=== PATIENT | male | born 1960 | race Caucasian/White ===

== ENCOUNTER 2019-02-10 09:10 | Outpatient (REF) | payer SELFPAY ==
[2019-02-11 10:56] LABS: PSA, Screening 1.1 ng/ml (0-3.5)
== END 2019-02-10 09:30 ==
LOC: NCHCN 09:10
PROVIDERS: PCP Family Medicine; Visit Provider Family Medicine
DX: Z12.5 Encounter for screening for malignant neoplasm of prostate (principal); Z00.00 Encounter for general adult medical examination without abnormal findings
CPT/HCPCS: 84153

== ENCOUNTER 2020-03-21 12:16 | Outpatient (REF) | payer BC, SELFPAY ==
[2020-03-21 15:15] LABS: Calculated LDL 95 mg/dL (<100); Cholesterol 173 mg/dL (<200); Glucose 97 mg/dL (74-106); HDL Cholesterol 51 mg/dL (40-60); Triglyceride 137 mg/dL (<150)
[2020-03-22 09:42] LABS: PSA, Screening 1.2 ng/mL (0.0-3.5)
== END 2020-03-21 12:36 ==
LOC: NCHCN 12:16
PROVIDERS: PCP Family Medicine; Visit Provider Family Medicine
DX: Z00.00 Encounter for general adult medical examination without abnormal findings (principal); Z13.1 Encounter for screening for diabetes mellitus; Z12.5 Encounter for screening for malignant neoplasm of prostate; Z13.220 Encounter for screening for lipoid disorders
CPT/HCPCS: 80061; 82947; 84153

== ENCOUNTER 2020-03-22 08:34 | Outpatient (REF) | payer BC, SELFPAY ==
[2020-03-23 14:59] LABS: Helicobacter pylori Ag, Feces Negative (Negative)
== END 2020-03-22 08:54 ==
LOC: NCHCN 08:34
PROVIDERS: PCP Family Medicine; Visit Provider Family Medicine
DX: K30 Functional dyspepsia (principal)
CPT/HCPCS: 87338

== ENCOUNTER 2021-03-26 17:36 | Outpatient (REF) | payer BC, SELFPAY ==
[2021-03-26 21:39] LABS: PSA, Screening 1.4 ng/mL (0.0-3.5)
== END 2021-03-26 17:37 | disposition home or self-care (01) ==
LOC: NCHCN 17:36
PROVIDERS: PCP Family Medicine; Visit Provider Family Medicine
DX: Z00.00 Encounter for general adult medical examination without abnormal findings (principal); Z12.5 Encounter for screening for malignant neoplasm of prostate
CPT/HCPCS: 84153

== ENCOUNTER 2021-07-18 18:16 | Outpatient (REF) | payer BC, SELFPAY ==
--- NOTE | 2021-07-18 14:30 | SKI_PTH ---
PATIENT: Zaid Leong LOC: NCN #:[id number] AGE/SX: 60/M ROOM: RE07/18/[address]: Gagandeep Roger : 1960 BED: DIS: 07/18/2021 SPEC #: [id number] RECD: 07/19/21 13:07 STATUS: KEATON DOMINGUEZ #: [id number] EFRAIN: 07/18/21 14:[address]: Gagandeep Roger DEPT: Surgical Specimen RECD BY: Sabrina Pickard Tissues: 1 - SKIN BIOPSY(SHAVE/PUNCH) Procedures: SKIN LEVEL 4 Comments: [id number]
== END 2021-07-18 18:17 | disposition home or self-care (01) ==
LOC: NCHCN 18:16
PROVIDERS: PCP Family Medicine; Visit Provider Family Medicine
DX: L82.1 Other seborrheic keratosis (principal)
CPT/HCPCS: 88305

== ENCOUNTER 2022-03-29 15:13 | Outpatient (REF) | payer BC, SELFPAY ==
[2022-04-01 09:28] LABS: PSA, Screening 2.4 ng/mL (<=3.5)
== END 2022-03-29 15:14 | disposition home or self-care (01) ==
LOC: NCHCN 15:13
PROVIDERS: PCP Family Medicine; Visit Provider Family Medicine
DX: Z00.00 Encounter for general adult medical examination without abnormal findings (principal); Z12.5 Encounter for screening for malignant neoplasm of prostate
CPT/HCPCS: 84153

== ENCOUNTER 2023-03-02 05:08 | Emergency (ER) | payer BC, SELFPAY ==
[2023-03-02 05:12] VITALS: BP 138/83; PULSE 88; RESP 18; TEMP 36.7; O2SAT 100
--- NOTE | 2023-03-02 05:15 | RT.EKG_ITS ---
APPROVED REPORT Exam: Resting ECG Reason for Exam: anxiety Patient Location: E HR:64 bpm ECG Measurements Heart Rate 64 AXIS [place] 134 P 74 QRSd 94 QRS 57 QT 408 T 43 QTc 423 Conclusion Sinus rhythm...normal P axis, V-rate 60- 99 Physician: no stemi
--- NOTE | 2023-03-02 05:25 | W.ED.GENAD ---
Discharge Plan Disposition Patient Disposition: Home Discharge Details Chief Complaint: Anxiety Clinical Impression: Insomnia, Panic attack Primary Care Provider: Gagandeep Roger ED Provider: Diaz Mclaughlin Home Meds and New Rx's Prescriptions: No Action atorvastatin 10 MG tablet 20 mg PO DAILY cholecalciferol (vitamin D3) 2,000 UNIT tablet 1 tab PO DAILY Discharge Instructions Instructions: Panic Attack (ED) Additional Instructions: At this time your EKG is reassuring, your symptoms thankfully appear inconsistent with a life-threatening disorder. That being said, your symptoms are certainly impacting your quality of life. Please take the Ativan as needed. You can take half of a tablet as needed during the day, or a full tablet at night to help sleep. Please follow-up closely with your primary care provider. If you notice any worsening of your symptoms, or any new symptoms such as vomiting, diarrhea, fever, chills, shortness of breath, chest pain, numbness, weakness, or fainting , please return immediately to the emergency department for reevaluation. Please follow up with your primary care provider as soon as possible for reassessment and reevaluation. As always, it was a pleasure participating in your medical care today. Referrals: Gagandeep Roger [Primary Care Provider] - Medical Decision Making 62-year-old male with no significant past medical history aside for high cholesterol presents today for anxiety. Patient states that over the last 2 weeks he has been having episodes where he will wake up out of sleep feeling notably panicked like he needs to escape and just get out or move. He denies any chest pain or shortness of breath. He denies any tearing or ripping sensation. His episodes last for few minutes and then resolve on their own. He denies any significant aggravating factors that he can think of. He did start seeing a counselor because of this and is scheduled to see his primary care provider in the upcoming week on Friday. He denies any personal or family history of pheochromocytoma. He denies any weight loss or weight gain. He denies any history of thyroid problem. He denies any new medication use, significant alcohol use, or drug use. He denies any homicidal or suicidal ideations. No other complaints at this time. Exam demonstrates a well-appearing male, no acute distress. He denies any symptoms at this time. States that he otherwise feels well but just has not been sleeping at all. Vital signs are notably stable. EKG benign. No evidence of MD. Symptoms inconsistent with dissection. History appears inconsistent with pheochromocytoma. Symptoms appear inconsistent with thyroid storm. This certainly may be an anxiety component. Patient's goals at this time are to help sleep tonight and to get him through to Friday morning when he can follow-up with his primary care provider Dr. Almanza. I do think this is reasonable. With the EKG showing no evidence of MD, dysrhythmia, or other abnormality I do not see an indication for further work-up at this time, especially in the clinical setting of his current asymptomatic status, normal vital signs, and unremarkable history. We will give 2 tablets of Ativan for home use as needed to help sleep. Discussed red flags for which to return. Discussed the importance of further discussion with PCP about potential long-term anxiolytics. Patient does not want to have any additional further discussion with mental health advocates at this time as he is already currently plugged in. I have extensively reviewed the treatment plan and discharge instructions with the patient. I have addressed all patient concerns at this time. The patient was made aware of what symptoms to monitor for that would warrant a return to the emergency department. Discussed the plan with the patient, they demonstrate verbal understanding and agreement with our assessment and plan at this time. The documentation in this chart was dictated using [employer] dictation software. Please excuse any dictation errors. HPI General Date/Time Provider Initiated Documentation: 03/02/23 05:08. HPI Narrative: 62-year-old male with no significant past medical history aside for high cholesterol presents today for anxiety. Patient states that over the last 2 weeks he has been having episodes where he will wake up out of sleep feeling notably panicked like he needs to escape and just get out or move. He denies any chest pain or shortness of breath. He denies any tearing or ripping sensation. His episodes last for few minutes and then resolve on their own. He denies any significant aggravating factors that he can think of. He did start seeing a counselor because of this and is scheduled to see his primary care provider in the upcoming week on Friday. He denies any personal or family history of pheochromocytoma. He denies any weight loss or weight gain. He denies any history of thyroid problem. He denies any new medication use, significant alcohol use, or drug use. He denies any homicidal or suicidal ideations. No other complaints at this time. Related Data Home Medications Medication Instructions Recorded Confirmed atorvastatin 10 mg tablet 20 mg PO DAILY 08/15/14 06/28/16 cholecalciferol (vitamin D3) 50 1 tab PO DAILY 10/21/14 06/28/16 mcg (2,000 unit) tablet Allergies Allergy/AdvReac Type Severity Reaction Status Date / Time No Known Allergies Allergy Unverified 04/29/16 15:22 General Stated Complaint: Anxiety SHANNAN: 3 Review of Systems All systems reviewed & are unremarkable except as noted in HPI and below PFSH All Active Problems (Updated 03/02/23 @ 05:33 by Diaz Mclaughlin DO) Colon cancer screening (Acute) History of colonic polyps (Acute) Insomnia (Acute) Panic attack (Acute) Surgical History Colonoscopy - MAC (06/28/16) Social History Smoking/Tobacco Use Status: Former Tobacco Use Smoking risk assessment performed?: Yes Alcohol Intake: current Alcohol Intake frequency: a few times a week Drug use: Never Substance use type: does not use Do you feel safe at home: Yes Do you feel safe in your relationship?: Yes Exam Narrative Exam Narrative: 1.Const: Well-nourished, Well-developed, appearing stated age 2.Eyes: PERRL, no conjunctival injection, and symmetrical lids. 3.ENT: Atraumatic external nose and ears. Moist MM. Neck: Symmetric, trachea midline, No thyromegaly. 4.CVS: +S1/S2, No murmurs or gallops. Peripheral pulses 2+ and equal in all extremities. Brisk capillary refill in all extremities. 5.RESP: Unlabored respiratory effort. Clear to auscultation bilaterally. No wheezes rales or rhonchi 6.GI: Soft, Nontender/Nondistended, No hepatosplenomegaly. No guarding or rebound. 7.MSK: Normocephalic/Atraumatic, Extremities w/o deformity or ttp No cyanosis or clubbing, Normal movement of all extremities 8.Skin: Warm, Dry. No rashes or lesions. 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 Sensation grossly intact, no focal neurologic deficits. 10.Psych: (AAO) x3. Appropriate mood and affect Course Vital Signs Vital signs: Vital Signs Temperature 36.7 C 03/02/23 05:12 Pulse 88 03/02/23 05:12 Respiratory Rate 18 03/02/23 05:12 Blood Pressure 138/83 03/02/23 05:12 Pulse Oximetry 100 03/02/23 05:12 Temperature 36.7 C 03/02/23 05:12 Temperature Source Tympanic 03/02/23 05:12 Pulse 88 03/02/23 05:12 Respiratory Rate 18 03/02/23 05:12 Respiratory Effort Normal 03/02/23 05:17 Respiratory Depth Normal 03/02/23 05:17 Respiratory Pattern Normal 03/02/23 05:17 Blood Pressure 138/83 03/02/23 05:12 Blood Pressure Position Supine 03/02/23 05:12 Pulse Oximetry 100 03/02/23 05:12 Oxygen Delivery Method Room Air 03/02/23 05:12 Oxygen Flow Rate 0 03/02/23 05:12 Pain Level 0 03/02/23 05:12 PAWSS Have you Been Recently Intoxicated or Drunk Within the Last 30 days?: No Have you Ever Experienced Previous Episodes of Alcohol Withdrawal?: No Have you ever Experienced Withdrawal Seizures?: No Have you ever Experienced Delirium Tremens(DT)s?: No Have you ever undergone Alcohol Rehabilitation Treatment (i.e, inpt ot outpatient treatment programs)?: No Have you ever Experienced Blackouts?: No Have you ever Combined Alcohol with other Downers within the last 90 days?: No Have you ever Combined Alcohol with any other Substance of Abuse during the last 90 days?: No Positive Blood Alcohol level on Presentation? [PCS.BAL]: No Evidence of Increased Autonomic Activity (i.e. HR>120, tremor, sweating, agitation, nausea)?: No Result: 0
[2023-03-02] MEDS: LORazepam 1 MG TAB 2 MG PO (05:32)
== END 2023-03-02 05:46 | disposition home or self-care (01) ==
PROVIDERS: Emergency Provider Student in an Organized Health Care Education/Training Program; PCP Family Medicine
DX: F41.0 Panic disorder [episodic paroxysmal anxiety] (principal); G47.00 Insomnia, unspecified
CPT/HCPCS: 93005; 99283; 93010

== ENCOUNTER 2023-04-02 17:03 | Outpatient (REF) | payer BC, SELFPAY ==
[2023-04-02 19:08] LABS: Hemoglobin A1C 5.5 % (<5.7)
[2023-04-02 19:16] LABS: Calculated LDL 65 mg/dL (<100); Cholesterol 157 mg/dL (<200); HDL Cholesterol 53 mg/dL (40-60); Triglyceride 199 mg/dL (<150)
[2023-04-03 17:50] LABS: PSA, Screening 1.3 ng/mL (<=4.5)
== END 2023-04-02 17:04 | disposition home or self-care (01) ==
LOC: NCHCN 17:03
PROVIDERS: PCP Family Medicine; Visit Provider Family Medicine
DX: Z00.00 Encounter for general adult medical examination without abnormal findings (principal); Z12.5 Encounter for screening for malignant neoplasm of prostate; Z13.1 Encounter for screening for diabetes mellitus; E78.5 Hyperlipidemia, unspecified
CPT/HCPCS: 80061; 84153; 83036

== ENCOUNTER → 2023-09-17 01:27 | Outpatient (CLI) | payer BC, SELFPAY ==
--- NOTE | 2023-09-17 | DI.RAD_ITS ---
Exam(s) XR CHEST 2V PA LATERAL EXAM: XR CHEST 2V PA LATERAL CLINICAL HISTORY: HEMOPTYSIS R04.2 COUGHING UP BLOOD FORMER SMOKER. TECHNIQUE: 2D digital imaging was performed. COMPARISON: No exams were available for comparison FINDINGS: 2 views: Heart size is normal. The mediastinum is not widened. Left lung is clear. There is nodular density in the lower right lung field seen on the frontal view, measuring approximately 2.5 x 1.1 cm. There are no pleural effusions. IMPRESSION: There is a lobulated nodular density in the lower half of the right lung field either in the lower lo be or right middle lobe. This is only seen on the frontal view but requires follow-up. Recommend CT scan. DATA REPOSITORY: RADIATION DOSE DELIVERED:
== END ==
PROVIDERS: PCP Family Medicine; Visit Provider Family Medicine
DX: R91.8 Other nonspecific abnormal finding of lung field (principal); Z87.891 Personal history of nicotine dependence; R04.2 Hemoptysis
CPT/HCPCS: 71046

== ENCOUNTER → 2023-11-05 01:19 | Outpatient (CLI) | payer BC, SELFPAY ==
[2023-11-05 13:57] LABS: Estimated GFR 85.63 (mL/min/1.73m2)
[2023-11-05] MEDS: Omnipaque 350 MG/ML 100 ML BTL 70 ML IJ (14:15)
[2023-11-05] MEDS: Normal Saline - Diluent 50 ML VIAL IJ (14:16)
--- NOTE | 2023-11-05 14:30 | DI.CT_ITS ---
Exam(s) CT CHEST W EXAM: CT CHEST W CLINICAL HISTORY: HEMOPTYSIS R04.2 ? MASS, FORMER SMOKER TECHNIQUE: Imaging Protocol: Axial computed tomography images with coronal and sagittal reformatted images were created and reviewed CONTRAST MATERIAL: Intravenous: Omnipaque 350 Contrast volume:structured data ml. COMPARISON: CR XR CHEST 2V PA LATERAL from 09/17/2023 FINDINGS: Pulmonary parenchyma: Minimal emphysematous changes. Mild upper lobe scarring. No consolidation. N o dominant measurable mass. Tracheobronchial tree: No bronchiectasis or mucous plugging. No bronchial wall thickening. Mediastinum and Ailyn: No dominant adenopathy or fluid collection. Pleura: No effusion. No pneumothorax. Heart: The heart is not dilated. No coronary artery calcifications are seen. Aorta: Thoracic aorta non-dilated. Minimal atherosclerotic changes. Upper abdomen: No acute findings.. Bones: Mild degenerative changes in the spine. Soft tissues: Unremarkable. IMPRESSION: No acute abnormality. No evidence of mass or suspicious pulmonary nodules. No filtrate or bronchial abnormality. RADIATION DOSE DELIVERED: 552.76mGy.cm Total DLP DATA REPOSITORY: All CT scans at this facility are submitted to the National Radiology Data Registry (NRDR) Dose Index Registry (DIR) with the [employer] ([employer]). RADIATION OPTIMIZATION: All CT scans at this facility use at least one of these dose optimization te chniques: automated exposure control; mA and/or kV adjustment per patient size (includes targeted exa ms where dose is matched to clinical indication); or iterative reconstruction.
== END ==
PROVIDERS: PCP Family Medicine; Visit Provider Family Medicine
DX: R04.2 Hemoptysis (principal); F17.210 Nicotine dependence, cigarettes, uncomplicated
CPT/HCPCS: 71260; 82565; J3490

== ENCOUNTER 2024-04-05 10:10 | Outpatient (REF) | payer BC, SELFPAY ==
[2024-04-05 15:55] LABS: Abs Immature Grans 0.02 10^3/uL (0.0-0.06); Absolute Basophil Count 0.05 10^3/uL (0.0-0.2); Absolute Eosinophil Count 0.11 10^3/uL (0.0-0.7); Absolute Lymphocyte Count 1.62 10^3/uL (1.2-3.4); Absolute Monocyte Count 0.59 10^3/uL (0.1-0.8); Absolute Neutrophil Count 3.78 10^3/uL (1.2-6.7); Basophils % 0.8 %; Eosinophils % 1.8 %; HCT 46.2 % (40.0-50.0); HGB 15.7 g/dL (13.5-17.5); Immature Grans % 0.3 %; Lymphocytes % 26.3 %; MCH 30.4 pg (27.0-33.0); MCV 90 fL (80-95); MPV 10.5 fL (8.0-11.0); Monocytes % 9.6 %; Neutrophils % 61.2 %; Platelet Count 302 10^3/uL (130-400); RBC 5.16 10^6/uL (4.36-5.78); RDW 13.2 % (11.8-14.1); RDW-SD 43.5 fL; WBC 6.17 10^3/uL (4.4-10.8)
[2024-04-05 16:44] LABS: Hemoglobin A1C 5.7 % (<5.7)
== END 2024-04-05 10:11 | disposition home or self-care (01) ==
LOC: NCHCN 10:10
PROVIDERS: PCP Student in an Organized Health Care Education/Training Program; Visit Provider Student in an Organized Health Care Education/Training Program
DX: E78.5 Hyperlipidemia, unspecified (principal); R59.0 Localized enlarged lymph nodes; Z13.1 Encounter for screening for diabetes mellitus
CPT/HCPCS: 80053; 80061; 84153; 83036; 85025

== ENCOUNTER 2024-04-07 10:40 | Outpatient (CLI) | payer BC, SELFPAY ==
[2024-04-07 10:38] LABS: ALT 20 U/L (16-63); AST 15 U/L (15-37); Albumin 3.8 g/dL (3.4-5.0); Alkaline Phosphatase 52 U/L (46-116); Anion Gap 5.7 mmol/L (3-11); BUN 16 mg/dL (7-18); Bilirubin, Total 0.71 mg/dL (0.2-1.0); CO2 31.3 mmol/L (21.0-32.0); CREATININE 1.1 mg/dL (0.70-1.30); Calcium 9.4 mg/dL (8.5-10.1); Calculated LDL 74 mg/dL (<100); Chloride 103 mmol/L (98-107); Cholesterol 154 mg/dL (<200); Estimated GFR 76.37 (mL/min/1.73m2); Glucose 115 mg/dL (74-106); HDL Cholesterol 55 mg/dL (40-60); Potassium 3.9 mmol/L (3.5-5.1); Sodium 140 mmol/L (136-145); Total Protein 7.5 g/dL (6.4-8.2); Triglyceride 127 mg/dL (<150)
[2024-04-07 22:28] LABS: PSA, Screening 1.4 ng/mL (<=4.5)
== END 2024-04-07 10:41 | disposition home or self-care (01) ==
LOC: LBO 10:41
PROVIDERS: PCP Student in an Organized Health Care Education/Training Program; Visit Provider Student in an Organized Health Care Education/Training Program
DX: E78.5 Hyperlipidemia, unspecified (principal); Z12.5 Encounter for screening for malignant neoplasm of prostate
CPT/HCPCS: 36415; 80053; 80061; 84153